=== PATIENT | female | born 1995 | race African-American/Black ===

== ENCOUNTER 2019-09-10 16:27 | Emergency (ER) | payer OTHER, SELFPAY ==
[2019-09-10 16:40] VITALS: BP 153/83; PULSE 125; RESP 20; TEMP 37.1; O2SAT 100
--- NOTE | 2019-09-10 16:42 | ED.GENADULT ---
HPI - General Adult General Chief complaint: Ear Stated complaint: ear pain Time Seen by Provider: 09/10/19 16:42 Source: patient Mode of arrival: ambulatory Limitations: no limitations History of Present Illness HPI narrative: 23-year-old female patient presents to the [facility] with complaints of right ear pain that started earlier today. Patient states she has had issues with ears and has had a couple of pairs of tubes in place before. Patient states recently she has had a little bit of a runny and stuffy nose. Patient states she has been having pain to the right ear, throbbing and states that even certain noises have been increasing the pain to her ear. Patient states she has been taking some [id number] Tylenol for her pain. Related Data Allergies Allergy/AdvReac Type Severity Reaction Status Date / Time No Known Allergies Allergy Verified 09/10/19 16:46 Review of Systems Review of Systems: Narrative: CONSTITUTIONAL: Denies fever, chills, or sweats. EYES: Denies visual changes, redness, or discharge. ENT: Denies rhinorrhea, congestion, sore throat, positive right otalgia. CARDIOVASCULAR: Denies chest pain, palpitations, or edema. RESPIRATORY: Denies cough or dyspnea. GASTROINTESTINAL: Denies abdominal pain, nausea, vomiting, or diarrhea. GENITOURINARY: Denies dysuria or hematuria. SKIN: Denies rash or itching. MUSCULOSKELETAL: Denies back pain, joint pain, or myalgia. NEUROLOGIC: Denies headache, numbness, or weakness. PSYCHIATRIC: Denies anxiety or depression. PMFSH Social History Social History Gender identity (if verbalized by the patient): Female Comments At the time of my signature I agree with nursing past medical history, surgical, social, and family history. There is no relevant family history pertinent to the presenting complaint. Exam Narrative: Exam Narrative: GENERAL: Well-appearing, well-nourished, and in no acute distress. HEAD: Normocephalic, atraumatic. EYES: PERRLA and EOMI. ENT: Nares clear, no rhinorrhea or epistaxis. Mucous membranes moist. Fluid noted behind the right ear along with a little bit of erythema. NECK: Supple. No lymphadenopathy CHEST: Clear to auscultation. No respiratory distress. HEART: Regular rate and rhythm. No murmur heard. Normal peripheral pulses. ABDOMEN: Soft, nontender, nondistended, normal active bowel sounds. EXTREMITIES: Normal range of motion. No edema. SKIN: Warm, dry, no rash. NEURO: No focal deficits. Alert and oriented x3. Course Vital Signs Vital signs: Vital Signs Temperature 37.1 C 09/10/19 16:40 Pulse Rate 125 H 09/10/19 16:40 Respiratory Rate 09/10/19 16:40 Blood Pressure 153/83 H 09/10/19 16:40 Pulse Oximetry 100 09/10/19 16:40 Temperature 37.1 C 09/10/19 16:40 Pulse Rate 125 H 09/10/19 16:40 Respiratory Rate 09/10/19 16:40 Blood Pressure 153/83 H 09/10/19 16:40 Pulse Oximetry 100 09/10/19 16:40 Vital signs reviewed. The patient has been informed that they may have pre-hypertension or Hypertension based on a BP reading in the department. I recommend that the patient call the primary care provider listed on their discharge instructions or a physician of their choice this week to arrange follow up for further evaluation of possible pre-hypertension or Hypertension Medical Decision Making Differential Diagnosis Differential Diagnosis: Differential diagnosis: Otitis media, otitis externa, perforated TM, infection of the outer ear, foreign body or cerumen impaction, ruptured TM, acute mastoiditis, ligament otitis externa, dehydration, pneumonia, sepsis, dental or intraoral infection, TMJ dysfunction Discussed with patient we will discharge her home with an oral antibiotic for the ear infection I am also going to give her a nasal steroid to help decrease the fluid out of her ears. Discussed with her I would highly recommend that she take a daily antihis
--- NOTE | 2019-09-10 16:45 | PC.NURSE ---
1640: patients states she was drinking coffee all day. heart rate elevated. nurse notified
[2019-09-10 16:56] VITALS: PULSE 115; O2SAT 99
== END 2019-09-10 16:56 | disposition home or self-care (01) ==
PROVIDERS: Emergency Provider Nurse Practitioner Family
DX: H66.91 Otitis media, unspecified, right ear (principal); R03.0 Elevated blood-pressure reading, without diagnosis of hypertension
CPT/HCPCS: 99203; G0463

== ENCOUNTER 2019-09-20 08:34 | Emergency (ER) | payer OTHER, SELFPAY ==
[2019-09-20 08:50] VITALS: BP 147/87; PULSE 96; RESP 18; TEMP 36.4; O2SAT 100
--- NOTE | 2019-09-20 08:53 | ED.GENADULT ---
HPI - General Adult General Chief complaint: Ear Stated complaint: ear pain Time Seen by Provider: 09/20/19 08:54 Source: patient Mode of arrival: ambulatory Limitations: no limitations History of Present Illness HPI narrative: 23-year-old female patient presents to the psychiatric with complaints of right ear pain for the past 2 weeks. Patient states she is felt like she has had a lot of pressure recently and then some popping. Patient states that she feels like there is a bunch of drainage that builds up and then it pops and releases. Patient states she has been feeling this over and over. Patient states she is also had some sensitivity to sound which is making it hurt. Patient states she has been taking ibuprofen for her pain. Patient did have tubes when she was younger but since then has fallen out. Patient states that she does also have allergy issues recently and has noticed that she is had a lot of drainage from the nose as well as some stuffiness to the nose. Denies any fevers, chest pain or shortness of breath. Denies any or breast-feeding at this time. Related Data Allergies Allergy/AdvReac Type Severity Reaction Status Date / Time No Known Allergies Allergy Verified 09/20/19 08:57 Review of Systems Review of Systems: Narrative: CONSTITUTIONAL: Denies fever, chills, or sweats. EYES: Denies visual changes, redness, or discharge. ENT: Denies rhinorrhea, congestion, sore throat, or otalgia. CARDIOVASCULAR: Denies chest pain, palpitations, or edema. RESPIRATORY: Denies cough or dyspnea. GASTROINTESTINAL: Denies abdominal pain, nausea, vomiting, or diarrhea. GENITOURINARY: Denies dysuria or hematuria. SKIN: Denies rash or itching. MUSCULOSKELETAL: Denies back pain, joint pain, or myalgia. NEUROLOGIC: Denies headache, numbness, or weakness. PSYCHIATRIC: Denies anxiety or depression. [facility] Social History Social History Gender identity (if verbalized by the patient): Female Comments At the time of my signature I agree with nursing past medical history, surgical, social, and family history. There is no relevant family history pertinent to the presenting complaint. Exam Narrative: Exam Narrative: GENERAL: Well-appearing, well-nourished, and in no acute distress. HEAD: Normocephalic, atraumatic. EYES: PERRLA and EOMI. ENT: Nares with erythema and edema noted bilaterally, patent, no rhinorrhea or epistaxis. Mucous membranes moist. Posterior pharynx with no erythema, tonsil enlargement, exudates or lesions present. The right TM does have a small perforation noted at the 7:00 area. There does seem to be some fluid noted behind the TM. No erythema noted. Dry blood noted to the canal NECK: Supple. No lymphadenopathy CHEST: Clear to auscultation. No respiratory distress. HEART: Regular rate and rhythm. No murmur heard. Normal peripheral pulses. ABDOMEN: Soft, nontender, nondistended, normal active bowel sounds. EXTREMITIES: Normal range of motion. No edema. SKIN: Warm, dry, no rash. NEURO: No focal deficits. Alert and oriented x3. Course Vital Signs Vital signs: Vital Signs Temperature 36.4 C L 09/20/19 08:50 Pulse Rate 96 09/20/19 08:50 Respiratory Rate 18 09/20/19 08:50 Blood Pressure 147/87 H 09/20/19 08:50 Pulse Oximetry 100 09/20/19 08:50 Temperature 36.4 C L 09/20/19 08:50 Pulse Rate 96 09/20/19 08:50 Respiratory Rate 18 09/20/19 08:50 Blood Pressure 147/87 H 09/20/19 08:50 Pulse Oximetry 100 09/20/19 08:50 Vital signs reviewed. The patient has been informed that they may have pre-hypertension or Hypertension based on a BP reading in the department. I recommend that the patient call the primary care provider listed on their discharge instructions or a physician of their choice this week to arrange follow up for further evaluation of possible pre-hypertension or Hypertension Medical Decision Making Differential
== END 2019-09-20 09:05 | disposition home or self-care (01) ==
PROVIDERS: Emergency Provider Nurse Practitioner Family
DX: H66.91 Otitis media, unspecified, right ear (principal); H72.91 Unspecified perforation of tympanic membrane, right ear
CPT/HCPCS: 99213; G0463

== ENCOUNTER 2020-04-14 12:11 | Emergency (ER) | payer OTHER, SELFPAY ==
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
[2020-04-14 12:13] VITALS: BP 143/83; PULSE 100; RESP 16; TEMP 36.3; O2SAT 98
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
== END 2020-04-14 14:03 | disposition home or self-care (01) ==
PROVIDERS: Emergency Provider Emergency Medicine
DX: M79.601 Pain in right arm (principal); S39.012A Strain of muscle, fascia and tendon of lower back, initial encounter; F17.290 Nicotine dependence, other tobacco product, uncomplicated; V49.40XA Driver injured in collision with unspecified motor vehicles in traffic accident, initial encounter
CPT/HCPCS: 72125; 72128; 72131; 73030; 73080; 73110; 81025; 99284

== ENCOUNTER 2022-01-29 13:00 | Emergency (ER) | payer SELFPAY ==
[2022-01-29 13:10] VITALS: BP 149/93; PULSE 90; RESP 16; TEMP 36.1; O2SAT 100
--- NOTE | 2022-01-29 13:29 | ED.URI ---
HPI - URI/Sore Throat General Chief Complaint: Upper Respiratory Infection Stated Complaint: Coughing, Chest feels Tight Time Seen by Provider: 01/29/22 13:15 Source: patient Mode of arrival: ambulatory Limitations: no limitations History of Present Illness HPI Narrative: Ms. William is a 26-year-old female patient presenting to the clinic today with complaints of productive cough and chest tightness x1 day. She reports symptoms began last night. States she had had to take off work today because she want to find out what was going on. She is a current smoker, she denies any fever or chills states that when she coughs she feels as though phlegm is stuck in her throat MD elicited complaint: cough and nasal congestion Related Data Allergies Allergy/AdvReac Type Severity Reaction Status Date / Time No Known Allergies Allergy Verified 01/29/22 13:04 Review of Systems Review of Systems: Pertinent positives per HPI. Patient denies any fever, chills, rash, headache, visual changes, dizziness, shortness of breath, chest pain, palpitations, nausea, vomiting, diarrhea, constipation, abdominal pain, or any urinary issues. [facility] Past Medical History Medical History No active medical problems Social History Social History Smoking status: Current every day smoker Tobacco type: e-cigarettes/vaping Gender identity (if verbalized by the patient): Female Comments At the time of my signature, I reviewed and agree with the nursing past medical, surgical, social, and family history. There is no relevant family history pertinent to the patient complaint. Exam Narrative: General: Well-developed, well nourished, in no apparent distress Head: Normocephalic, atraumatic Eyes: Pupils equally round and reactive to light bilaterally, EOM intact, sclera and conjunctive clear, no discharge, lids normal Ears: TMs intact and clear, ear canals clear, no drainage, grossly hearing normal. Nose: Nares patent, clear nasal discharge, no inflammation, no sinus tenderness. Mouth: Oral pharynx without lesions or masses, good dentition, MMM. Postnasal drip Neck: Supple, trachea midline, no enlargement of anterior or posterior cervical nodes, no thyroid masses or goiter palpable. Cardio: Regular rate and rhythm, s1 and s2 normal, no murmur appreciated. Resp: Clear to auscultation bilaterally, no rhonchi, rales, wheezing or rubs Course Course Emergency Course: Portions of this record may have been created with voice recognition software. Level of Care: Express Care Visit Vital Signs Vital signs: Vital Signs Temperature 36.1 C L 01/29/22 13:10 Pulse Rate 90 01/29/22 13:10 Respiratory Rate 16 01/29/22 13:10 Blood Pressure 149/93 H 01/29/22 13:10 Pulse Oximetry 100 01/29/22 13:10 Oxygen Delivery Room Air 01/29/22 13:10 Temperature 36.1 C L 01/29/22 13:10 Pulse Rate 90 01/29/22 13:10 Respiratory Rate 16 01/29/22 13:10 Blood Pressure 149/93 H 01/29/22 13:10 Pulse Oximetry 100 01/29/22 13:10 Oxygen Delivery Room Air 01/29/22 13:10 Vital signs reviewed MDM - URI/Sore Throat MDM Narrative Medical decision making narrative: At the time of visit patient is resting comfortably on the exam table. I suspect patient has bronchitis. Supportive measures were discussed with the patient she voiced understanding of discharge instructions. Prescription for albuterol inhaler and Mucinex was sent to the pharmacy Differential Diagnosis Differential diagnosis: Likely sinusitis, viral infection, influenza and pharyngitis Discharge Plan Discharge Clinical Impression: Cough, Bronchitis Patient Disposition: Home, Self-Care Condition: Stable Instructions: Antibiotic Form, Acute Bronchitis (ED) Additional Instructions: Take prescription medications only as prescribed-albuterol inhaler
== END 2022-01-29 13:36 | disposition home or self-care (01) ==
PROVIDERS: Emergency Provider Nurse Practitioner Family
DX: J40 Bronchitis, not specified as acute or chronic (principal); F17.290 Nicotine dependence, other tobacco product, uncomplicated
CPT/HCPCS: 99213; G0463

== ENCOUNTER 2022-01-31 16:21 | Emergency (ER) | payer SELFPAY ==
[2022-01-31 16:30] VITALS: BP 152/101; PULSE 90; RESP 16; TEMP 36.6; O2SAT 100
--- NOTE | 2022-01-31 16:44 | ED.URI ---
HPI - URI/Sore Throat General Chief Complaint: Upper Respiratory Infection Stated Complaint: Fever, Hot/Cold Flashes Source: patient and RN notes reviewed Mode of arrival: ambulatory Limitations: no limitations History of Present Illness HPI Narrative: 26-year-old female presented for complaint of feeling hot and cold for 2 days. States temp last night 100.9. She was seen at [facility] 2 days ago for cough and chest tightness, dx bronchitis, given albuterol and mucinex and has been compliant with these medications. States the symptoms have improved. Denies shortness of breath, wheezing, nausea, vomiting. MD elicited complaint: cough Related Data Allergies Allergy/AdvReac Type Severity Reaction Status Date / Time No Known Allergies Allergy Verified 01/31/22 16:35 Review of Systems Review of Systems: CONSTITUTIONAL: Endorses chills, sweats, fever EYES: Denies visual changes, redness, or discharge ENT: denies rhinorrhea, congestion, sinus pain, otalgia, sore throat CARDIOVASCULAR: Denies chest pain, palpitations, edema RESPIRATORY: Reports cough, post nasal drainage. Denies dyspnea GASTROINTESTINAL: Denies abdominal pain, nausea, vomiting, diarrhea SKIN: Denies rash or itching PMFSH Past Medical History Medical History No active medical problems Social History Social History Smoking status: Current every day smoker Tobacco type: e-cigarettes/vaping Gender identity (if verbalized by the patient): Female Exam Narrative: GENERAL: well-appearing EYES: conjunctivae clear ENT: Mucous membranes moist. TMs pearly aaron with dull light reflex bilaterally; no tragal tenderness. Oropharynx erythematous without lesions or exudate, no drooling, no hoarseness, no trismus, uvula midline. CHEST: Clear to auscultation, breath sounds equal. HEART: Regular rate and rhythm. No murmur heard. SKIN: Warm, dry, no rash. NEURO: Alert and oriented x3. PSYCH: Normal mood and affect Course Course Emergency Course: Patient is aware of diagnosis, understands and agrees to treatment plan. Anticipatory guidance given. Patient agrees to follow-up as directed and is aware of reasons to seek care at the emergency department. Portions of this record may have been created with voice recognition software Level of Care: Express Care Visit Vital Signs Vital signs: Vital Signs Temperature 97.9 F 01/31/22 16:30 Pulse Rate 90 01/31/22 16:30 Respiratory Rate 16 01/31/22 16:30 Blood Pressure 152/101 H 01/31/22 16:30 Pulse Oximetry 100 01/31/22 16:30 Oxygen Delivery Room Air 01/31/22 16:30 Temperature 97.9 F 01/31/22 16:30 Pulse Rate 90 01/31/22 16:30 Respiratory Rate 16 01/31/22 16:30 Blood Pressure 152/101 H 01/31/22 16:30 Pulse Oximetry 100 01/31/22 16:30 Oxygen Delivery Room Air 01/31/22 16:30 reviewed MDM - URI/Sore Throat MDM Narrative Medical decision making narrative: covid and flu negative. Advised supportive measures and signs/symptoms to go to the ER. Pt is appropriate for outpt treatment and f/u. Differential Diagnosis Differential diagnosis: Likely upper respiratory infection, sinusitis and viral infection Lab Data Labs: Lab Results 01/31/22 Range/Units 17:00 POC SARS CoV-2 Ag Negative (Negative) Influenza A Screen Negative Reference Range: Negative Influenza B Screen Negative Reference Range: Negative Discharge Plan Discharge Clinical Impression: Viral infection Patient Disposition: Home, Self-Care Condition: Stable Instructions: Antibiotic Form, Viral Syndrome (ED) Additional Instructions: covid and flu negative Recommend Flonase spray and Zyrtec (or Claritin/Mindy) for sinus congestion Alternate
== END 2022-01-31 17:33 | disposition home or self-care (01) ==
PROVIDERS: Emergency Provider Nurse Practitioner Family
DX: B34.9 Viral infection, unspecified (principal); Z20.822 Contact with and (suspected) exposure to COVID-19; F17.290 Nicotine dependence, other tobacco product, uncomplicated
CPT/HCPCS: 87426; 87804; 99213; C9803; G0463

== ENCOUNTER 2023-02-22 16:41 | Emergency (ER) | payer SELFPAY ==
[2023-02-22 16:56] VITALS: BP 127/73; PULSE 98; RESP 16; TEMP 36.9; O2SAT 98
--- NOTE | 2023-02-22 17:44 | ED.EAR ---
HPI - Ear Problem General Chief complaint: Ear Stated complaint: right ear pain Time Seen by Provider: 02/22/23 17:38 Source: patient and RN notes reviewed Mode of arrival: ambulatory Limitations: no limitations History of Present Illness HPI Narrative: Patient presents today complaining of right ear pain since yesterday. Currently rates her pain 5/10 and has been taking Tylenol and ibuprofen with some relief. History of tubes as a child. Denies any additional symptoms to include, congestion, rhinorrhea, sore throat. Related Data Allergies Allergy/AdvReac Type Severity Reaction Status Date / Time No Known Allergies Allergy Verified 02/22/23 16:49 Review of Systems Review of Systems: CONSTITUTIONAL: Denies body aches, fever, chills, or sweats. EYES: Denies visual changes, redness, or discharge. ENT: Denies rhinorrhea, congestion, sore throat. + right ear pain CARDIOVASCULAR: Denies chest pain, palpitations, or edema. RESPIRATORY: Denies cough or dyspnea. GASTROINTESTINAL: Denies abdominal pain, nausea, vomiting, or diarrhea. GENITOURINARY: Denies dysuria or hematuria. SKIN: Denies rash, itching, or wounds. MUSCULOSKELETAL: Denies back pain, joint pain, or myalgia. NEUROLOGIC: Denies headache, numbness, tingling, or weakness. PSYCH: Denies depression or anxiety. COUNTS INCLUDE 234 BEDS AT THE [facility] Past Medical History Medical History No active medical problems Social History Social History Smoking status: Current every day smoker Tobacco type: e-cigarettes/vaping Gender identity (if verbalized by the patient): Female Comments At time of signature, I have reviewed and agree with nursing past medical, surgical, social and family history unless otherwise noted. Please see nursing chart for further information. There is no relevant family history pertinent to the presenting complaint Exam Narrative: GENERAL: Well-appearing, well-nourished, and in no acute distress. HEAD: Normocephalic, atraumatic. EYES: EOMI. No redness or drainage. Conjunctivae normal. ENT: Mucous membranes pink and moist. Nares clear. No rhinorrhea. Minor middle ear effusion on the right without evidence of bacterial infection. Left TM normal. Throat normal. Uvula midline. NECK: Normal AROM. Supple. No lymphadenopathy. CHEST: No respiratory distress. Clear to auscultation. HEART: Regular rate and rhythm. No murmur appreciated. EXTREMITIES: Normal range of motion. No edema. SKIN: Warm, dry, no rash. Capillary refill normal. Normal skin turgor. NEURO: No focal deficits. Alert and oriented x3. Gait steady. PSYCH: Normal affect. No signs of depression or anxiety. Course Course Level of Care: Express Care Visit Vital Signs Vital signs: Vital Signs Temperature 98.5 F 02/22/23 16:56 Pulse Rate 98 02/22/23 16:56 Respiratory Rate 16 02/22/23 16:56 Blood Pressure 127/73 02/22/23 16:56 Pulse Oximetry 98 02/22/23 16:56 Oxygen Delivery Room Air 02/22/23 16:56 Temperature 98.5 F 02/22/23 16:56 Pulse Rate 98 02/22/23 16:56 Respiratory Rate 16 02/22/23 16:56 Blood Pressure 127/73 02/22/23 16:56 Pulse Oximetry 98 02/22/23 16:56 Oxygen Delivery Room Air 02/22/23 16:56 Reviewed Medical Decision Making MDM Narrative Medical decision making narrative: Patient's exam consistent with mild right serous otitis. Discussed [id number] treatment. No prescription medications or testing indicated at this time. Anticipatory guidance given. Differential Diagnosis Differential Diagnosis: Otitis media, otitis externa, ruptured TM, serous otitis, eustachian tube dysfunction, cerumen impaction Vital Signs Vital Signs: Vital Signs Temperature 98.5 F 02/22/23 16:56 Pulse Rate 98 02/22/23 16:56 Respiratory Rate 16 02/22/23 16:56 Blood Pressure 127/73 02/22/23 16:56 Pulse Oximetry
== END 2023-02-22 17:51 | disposition home or self-care (01) ==
PROVIDERS: Emergency Provider Nurse Practitioner
DX: H65.01 Acute serous otitis media, right ear (principal); F17.290 Nicotine dependence, other tobacco product, uncomplicated
CPT/HCPCS: 99211; G0463

== ENCOUNTER 2023-04-12 09:57 | Emergency (ER) | payer SELFPAY ==
[2023-04-12 10:11] VITALS: BP 130/73; PULSE 104; RESP 16; TEMP 36.4; O2SAT 100
--- NOTE | 2023-04-12 11:12 | ED.EAR ---
HPI - Ear Problem General Chief complaint: Ear Stated complaint: Right Ear Irritation Time Seen by Provider: 04/12/23 11:05 Source: patient and RN notes reviewed Mode of arrival: ambulatory Limitations: no limitations History of Present Illness HPI Narrative: Patient presents today complaining of a 2 week history of right ear discomfort and pressure. Denies any additional upper respiratory symptoms. Currently rates her pain 6/10 and has been using ibuprofen and [id number] pain ear drops without much relief. Reports history of ear tubes as a child. Related Data Home Medications Medication Instructions Recorded Confirmed No Home Medications 04/12/23 04/12/23 Allergies Allergy/AdvReac Type Severity Reaction Status Date / Time No Known Allergies Allergy Verified 04/12/23 10:17 Review of Systems Review of Systems: CONSTITUTIONAL: Denies body aches, fever, chills, or sweats. EYES: Denies visual changes, redness, or discharge. ENT: Denies rhinorrhea, congestion, sore throat. + right ear pain CARDIOVASCULAR: Denies chest pain, palpitations, or edema. RESPIRATORY: Denies cough or dyspnea. GASTROINTESTINAL: Denies abdominal pain, nausea, vomiting, or diarrhea. GENITOURINARY: Denies dysuria or hematuria. SKIN: Denies rash, itching, or wounds. MUSCULOSKELETAL: Denies back pain, joint pain, or myalgia. NEUROLOGIC: Denies headache, numbness, tingling, or weakness. PSYCH: Denies depression or anxiety. [facility] Past Medical History Medical History No active medical problems Social History Social History Smoking status: Current every day smoker Tobacco type: e-cigarettes/vaping Gender identity (if verbalized by the patient): Female Comments At time of signature, I have reviewed and agree with nursing past medical, surgical, social and family history unless otherwise noted. Please see nursing chart for further information. There is no relevant family history pertinent to the presenting complaint Exam Narrative: GENERAL: Well-appearing, well-nourished, and in no acute distress. HEAD: Normocephalic, atraumatic. EYES: EOMI. No redness or drainage. Conjunctivae normal. ENT: Mucous membranes pink and moist. Left TM normal. Right TM normal in color. Scant amount of fluid noted NECK: Normal AROM. Supple. No lymphadenopathy. CHEST: No respiratory distress. EXTREMITIES: Normal range of motion. No edema. SKIN: Warm, dry, no rash. Capillary refill normal. Normal skin turgor. NEURO: No focal deficits. Alert and oriented x3. Gait steady. PSYCH: Normal affect. No signs of depression or anxiety. Course Course Level of Care: Express Care Visit Vital Signs Vital signs: Vital Signs Temperature 97.5 F L 04/12/23 10:11 Pulse Rate 104 H 04/12/23 10:11 Respiratory Rate 16 04/12/23 10:11 Blood Pressure 130/73 04/12/23 10:11 Pulse Oximetry 100 04/12/23 10:11 Oxygen Delivery Room Air 04/12/23 10:11 Temperature 97.5 F L 04/12/23 10:11 Pulse Rate 104 H 04/12/23 10:11 Respiratory Rate 16 04/12/23 10:11 Blood Pressure 130/73 04/12/23 10:11 Pulse Oximetry 100 04/12/23 10:11 Oxygen Delivery Room Air 04/12/23 10:11 Reviewed Medical Decision Making MDM Narrative Medical decision making narrative: TM appears normal without evidence of infection. Small amount of fluid behind the TM. Discussed [id number] treatment. No prescription medications indicated at this time. Anticipatory guidance given. Differential Diagnosis Differential Diagnosis: Otitis media, otitis externa, ruptured TM, serous otitis, eustachian tube dysfunction, cerumen impaction Vital Signs Vital Signs: Vital Signs Temperature 97.5 F L 04/12/23 10:11 Pulse Rate 104 H 04/12/23 10:11 Respiratory Rate 16 04/12/23 10:11 Blood Pressure 130/73 04/12/23 10:11 Pu
== END 2023-04-12 11:19 | disposition home or self-care (01) ==
PROVIDERS: Emergency Provider Nurse Practitioner
DX: H65.01 Acute serous otitis media, right ear (principal); F17.290 Nicotine dependence, other tobacco product, uncomplicated
CPT/HCPCS: 99211; G0463

== ENCOUNTER 2023-09-03 15:33 | Emergency (ER) | payer MEDICAID, SELFPAY ==
[2023-09-03 15:46] VITALS: BP 138/98; PULSE 102; RESP 16; TEMP 36.3; O2SAT 100
--- NOTE | 2023-09-03 16:13 | ED.BACK ---
HPI - Back Pain/Injury General Chief Complaint: Back Pain/Injury Stated Complaint: upper middle back hurts Time Seen by Provider: 09/03/23 16:13 Source: patient, RN notes reviewed and old records reviewed Mode of arrival: ambulatory Limitations: no limitations History of Present Illness HPI Narrative: 27-year-old female presents to the [facility] with complaints middle of the back discomfort. Denies any injury. Denies any midline tenderness. No erythema, ecchymosis noted. No swelling noted. Walks with a normal gait. Discomfort is along the mid back, bra line. Has tried taking Tylenol, naproxen, using ice and heat as well as getting a massage Reports that when-she sweeps is when the pain is the worst Onset (ago): week(s) (1) Related Data Allergies Allergy/AdvReac Type Severity Reaction Status Date / Time No Known Allergies Allergy Verified 09/03/23 15:54 Review of Systems Review of Systems: All systems reviewed & are unremarkable except as noted in HPI and below Constitutional: Constitutional: Reports no additional constitutional complaints Eyes: Eyes: Reports no additional eye complaints ENT: Reports system reviewed and no additional complaints, except as documented Cardiovascular: Cardiovascular: Reports no additional cardiovascular complaints, Denies chest pain and Denies dyspnea Respiratory: Respiratory: Reports no additional respiratory complaints, Denies chest congestion, Denies cough and Denies dyspnea Gastrointestinal: Gastrointestinal: Reports no additional gastrointestinal complaints, Denies abdominal pain, Denies nausea and Denies vomiting Musculoskeletal: Musculoskeletal: Reports as per HPI Integumentary/Breasts: Skin/Breast: Reports system reviewed and no additional complaints, except as docu Neurologic: Reports system reviewed and no additional complaints, except as documented Psychiatric: Psychiatric: Reports no additional psychiatric complaints Allergic/Immunologic: Allergic/Immunologic: Reports no additional allergic/immunologic complaints [facility] Past Medical History Medical History No active medical problems Social History Social History Smoking status: Current every day smoker Tobacco type: e-cigarettes/vaping Gender identity (if verbalized by the patient): Female Comments At the time of my signature, I reviewed and agree with the nursing past medical, surgical, social, and family history. There is no relevant family history pertinent to the patient complaint. Exam Const: General: cooperative, healthy appearing, comfortable, no acute distress, well developed, alert and well nourished Nutritional Appearance: well nourished Orientation/consciousness: patient oriented x3 Limitations: no limitations HENMT: Head: normal to inspection Ears: hearing grossly normal bilaterally and external ears normal Face/Nose/Sinus: Normal external nose present, Normal nares present, Normal nasal mucous membranes and turbinates present, normal facial exam and face symmetric Face and sinus: normal facial exam and face symmetric Eyes: General: appearance normal, both eyes and all related structures Alignment and Position: alignment normal Periorbital: periorbital findings normal Pupils: Equal, round and reactive pupils present EOM: EOMs intact bilaterally Neck: Neck: normal visual inspection, full ROM, no lymphadenopathy and no meningeal signs Chest: Chest palpation & inspection: normal inspection of the chest Resp: Effort & Inspection: normal respiratory effort and able to speak in complete sentences Auscultation: clear to auscultation bilaterally, no crackles, no rales, no rhonchi and no wheezes Cardio: Rate: regular rate Rhythm: regular rhythm GI: GI Palp: No abdominal tenderness : General: Yes no CVA tenderness Back/Spine/Pelvis: Cervical Spine: normal cervical lordosis, cer
== END 2023-09-03 16:35 | disposition home or self-care (01) ==
PROVIDERS: Emergency Provider Nurse Practitioner
DX: M54.6 Pain in thoracic spine (principal); F17.290 Nicotine dependence, other tobacco product, uncomplicated
CPT/HCPCS: 99203; G0463